=== PATIENT | male | born 1960 | race Hispanic/Latino ===

== ENCOUNTER 2022-05-26 15:00 | Outpatient (RCR) | payer OTHER | END 2022-05-28 | LOC: PT 15:00 | PROVIDERS: ATTEND Specialist | DX: M25.561 Pain in right knee (principal) ==

== ENCOUNTER 2022-06-03 14:49 | Outpatient (RCR) | payer OTHER | END 2022-06-28 | LOC: PT 14:49 | PROVIDERS: ATTEND Specialist | DX: S83.221D Peripheral tear of medial meniscus, current injury, right knee, subsequent encounter (principal); M17.11 Unilateral primary osteoarthritis, right knee ==